=== PATIENT | female | born 1985 | race Native Hawaiian/Other Pacific Islander ===

== ENCOUNTER → 2016-12-01 | Emergency (ER) | payer OTHER ==
[~2016-12-01] VITALS: Ht 152.4 cm; Wt 59.9 kg
[~2016-12-01] MED LIST: ASPI81CH7 CHEW; IBUP-232 PO; IBUP800 PO; PRENCAP10 PO; VITA400D PO
--- NOTE | 2016-12-01 20:41 | PD ---
HPI Chief Complaint Contractions Date Seen: Dec 01, 2016 Travel History International Travel<30 Days: No Contact w/Intl Traveler<30Days: No Known Affected Area: No History of Present Illness HPI Patient is 31-year-old female G 3 P1 now at 39 weeks 4 days presents combining of contraction pain lasts several days getting worse tonight, no bleeding or ruptured membranes that she did pass what she describes as her mucous plug, heart rate tracing is reactive and contractions to be about every 5 or 6 minutes Para: 1 : 3 History Obstetric History Obstetric History 1 delivery 1 loss early Social History Alcohol Use: No Tobacco Use: No Substance Abuse: No Allergies-Medications (Allergen,Severity, Reaction): Coded Allergies: No Known Allergies (Unverified , 02/24/13) Home Meds Reported Medications Ibuprofen (Motrin 800 Mg Tab)800 Mg [id number] Mg PO Q8H PRN (PAIN) #30 TAB 01/12/14 Cholecalciferol (Vitamin D)400 Unit Anish Po Daily UNKNOWN DOSE 01/09/14 Vit W/ Ferrous Fumara ( Multi +Dha)+ Cap1 Cap PO 01/09/14 Review of Systems General / Constitutional: No: Fever, Weight Gain, Chills, Other Eyes: No: Diploplia, Blurred Vision, Visual changes, Pain, Photophobia HENT: No: Headaches, Vertigo, Lightheadedness Cardiovascular: No: Irregular Rhythm, Chest Pain or Discomfort, Palpitations, Tachycardia, Syncope, Varicosities, Edema, Cyanosis Respiratory: No: Cough, Short of Breath, Other Gastrointestinal: No: Nausea, Vomiting, Diarrhea Genitourinary: No: Decreased Urinary Output, Oliguria Musculoskeletal: No: Limited ROM, Weakness, Cramping, Edema, Pain Skin: No Rash, No Itching, No Dryness, No Lumps, No Change in Pigmentation, No Change in Nails, No Alopecia, No Lesions Neurologic: No: Weakness, Dizziness, Syncope, Focal Abnormalities, Coordination Problem, Headache, Slurred Speech, Seizures Psychiatric: No: Depression, Suicidal Ideations, Homicidal Ideation Endocrine: No: Heat Intolerance, Cold Intolerance, Polydipsia, Polyuria, Other Physical Exam Narrative GENERAL: Well-nourished, well-developed patient. SKIN: Warm and dry. HEAD: Normocephalic and atraumatic. EYES: No scleral icterus. No injection or drainage. ENT: No nasal drainage noted. Mucous membranes pink. Airway patent. NECK: Supple, trachea midline. No JVD. CARDIOVASCULAR: Regular rate and rhythm without murmurs, gallops, or rubs. RESPIRATORY: Breath sounds equal bilaterally. No accessory muscle use. BREASTS: Bilateral exam showed no masses , no retractions, no nipple discharge. ABDOMEN/GI: Abdomen soft, non-tender, bowel sounds present, no rebound, no guarding Gravid to [39-] weeks size Fundal Height: [-38] GENITOURINARY: External Genitalia: intact and normal in appearance BUS glands: [-] Cervix: [-1] Dilatation: [1-] Effacement: [-thick] Station: [-3] Presentation: [-vtx] Membranes: [intact ] Uterine Contractions: [q 5 min-] FHT's: Category: [1-] Baseline: [133-] Reactive: [-yes] Variability: [mod-] Decels: [-none] EXTREMITIES: No cyanosis or edema. BACK: Nontender without obvious deformity. No CVA tenderness. NEUROLOGICAL: Awake and alert. Motor and sensory grossly within normal limits. Five out of 5 muscle strength in all muscle groups. Normal speech. MDM Interpretation(s) Patient is 31-year-old female [address] Pinto now presenting complaining of contractions but no leakage or bleeding. heart rate tracing is reactive and she is ole care 5 or 6 minutes., Her cervix is fingertip thick and high very posterior, and baby is cephalic by ultrasound Plan Plan to discharge home for her to return if contractions worsen in intensity or she has bleeding or leakage of fluid Diagnosis Diagnosis: Primary Impression: False labor after 37 completed weeks of gestation Disposition: 01 DISCHARGE HOME Condition: Stable Calvin Thao II, MD Dec 01, 2016 20:41
== END | disposition home or self-care (01) ==
LOC: HOBED 19:59
DX: O47.1 False labor at or after 37 completed weeks of gestation (principal); Z3A.39 39 weeks gestation of pregnancy
CPT/HCPCS: 76815

== ENCOUNTER 2016-12-05 07:59 | Inpatient (IN) | payer OTHER ==
[2016-12-05] VITALS (40 sets, daily range): BP systolic 93–146; BP diastolic 45–112; PULSE 72–129; RESP 16–20; TEMP 97.4–98.2
[~2016-12-05 07:59] MED LIST changes: -IBUP-232 PO; -IBUP800 PO
[2016-12-05] MEDS ORDERED: LACTATED RINGER'S 1000 ML INJ 1,000 ML IV PRN (08:35)
--- NOTE | 2016-12-05 08:35 | PD ---
HPI Chief Complaint Ruptured membranes and contractions Date Seen: Dec 05, 2016 Time Seen: 08:30 Travel History International Travel<30 Days: No Contact w/Intl Traveler<30Days: No Known Affected Area: No History of Present Illness HPI 31-year-old female who is at 40 weeks and 1 day complains of rupture of membranes approximately 4:00 this morning with a gush of clear fluid. Patient began having painful contractions and what she describes as a bloody show. On palpating her course with a previous vaginal delivery Para: 1 : 2 History Past Medical History Medical History: Denies Significant Hx Obstetric History Obstetric History Spontaneous vaginal delivery 5 lbs. 13 oz. Past Surgical History Narrative Surgical Laparoscopy and a D&C Family History Family History: Negative Social History Alcohol Use: No Tobacco Use: No Substance Abuse: No Allergies-Medications (Allergen,Severity, Reaction): Coded Allergies: No Known Allergies (Unverified , 12/01/16) Home Meds Reported Medications Aspirin (Aspirin Children's)81 Mg Chew81 Mg CHEW DAILY Ref 0 12/01/16 Cholecalciferol (Vitamin D)400 Unit Anish Po Daily UNKNOWN DOSE 01/09/14 Vit W/ Ferrous Fumara ( Multi +Dha)+ Cap1 Cap PO 01/09/14 Discontinued Reported Medications Ibuprofen (Motrin 800 Mg Tab)800 Mg [id number] Mg PO Q8H PRN (PAIN) #30 TAB 01/12/14 Review of Systems Except as stated in HPI: all other systems reviewed are Neg Physical Exam Narrative GENERAL: Well-nourished, well-developed patient. SKIN: Warm and dry. HEAD: Normocephalic and atraumatic. EYES: No scleral icterus. No injection or drainage. ENT: No nasal drainage noted. Mucous membranes pink. Airway patent. NECK: Supple, trachea midline. No JVD. CARDIOVASCULAR: Regular rate and rhythm without murmurs, gallops, or rubs. RESPIRATORY: Breath sounds equal bilaterally. No accessory muscle use. BREASTS: Bilateral exam showed no masses , no retractions, no nipple discharge. ABDOMEN/GI: Abdomen soft, non-tender, bowel sounds present, no rebound, no guarding Gravid to [-] weeks size Fundal Height: [37-] GENITOURINARY: External Genitalia: intact and normal in appearance BUS glands: [-Normal] Cervix: [Posterior-] Dilatation: [-3] Effacement: [50-] Station: [--2] Presentation: [Vertex-] Membranes: [intact or ruptured] patient with gross lesions or ruptured membranes clear fluid noted. fore bag is palpated Uterine Contractions: [-] Every 5 minutes FHT's: Category: [1-] Baseline: [140-] Reactive: [-Moderate] Variability: [Moderate-] Decels: [Absent-] EXTREMITIES: No cyanosis or edema. BACK: Nontender without obvious deformity. No CVA tenderness. NEUROLOGICAL: Awake and alert. Motor and sensory grossly within normal limits. Five out of 5 muscle strength in all muscle groups. Normal speech. Data Data Vital Signs Reviewed: Yes MDM Plan Term gestation with spontaneous rupture membranes patient is in early labor. GBS is negative. Dr. Cullen is on for her group and was contacted Diagnosis Diagnosis: Primary Impression: Rupture of membranes with clear amniotic fluid Additional Impressions: 40 weeks gestation of Irregular uterine contractions Penny Hastings MD Dec 05, 2016 08:35
[2016-12-05] MEDS ORDERED: ONDANSETRON HCL 4 MG/2 ML VIAL IV PRN (08:45)
[2016-12-05] MEDS ORDERED: OXYTOCIN 30 UNITS-500ML PREMIX 500 ML IV ONE ×2 (08:45→17:45)
[2016-12-05] MEDS ORDERED: SODIUM CHLORID 0.9% 500 ML INJ 500 ML IV PRN (08:45)
[2016-12-05] MEDS ORDERED: CITRIC ACID-SODIUM CITRATE LIQ 30 ML UDC PO SCH (08:45)
[2016-12-05] MEDS ORDERED: MINERAL OIL 10 ML VIAL TOPICAL PRN (08:45)
[2016-12-05] MEDS ORDERED: LIDOCAINE HCL 1% 50 ML VIAL I-DERMAL PRN (08:45)
[2016-12-05] MEDS ORDERED: LIDOCAINE HCL 1% 50 ML VIAL INFIL PRN (08:45)
[2016-12-05] MEDS ORDERED: SODIUM CHLOR 0.9% 1000 ML INJ 1,000 ML IV PRN (08:55)
[2016-12-05] MEDS ORDERED: OXYTOCIN 30 UNITS-500ML PREMIX 500 ML IV SCH (09:00)
[2016-12-05 09:29] LABS: AUTOMATED NEUTROPHIL # 7.1 TH/MM3 (1.8-7.7); BASOPHIL % 0.4 % (0.0-2.0); EOSINOPHIL % 0.3 % (0.0-4.0); HEMATOCRIT 34.8 % (35.0-46.0); HEMO FLAGS DIFF FINAL; LYMPH % 22.6 % (9.0-44.0); LYMPHOCYTE # 2.3 TH/MM3 (1.0-4.8); MEAN CELL VOLUME 77.2 FL (80.0-100.0); MEAN CORPUSCULAR HEMOGLOBIN 26.3 PG (27.0-34.0); MONO % 6.5 % (0.0-8.0); NEUT % 70.2 % (16.0-70.0); PLATELET COUNT 324 TH/MM3 (150-450); RED BLOOD COUNT 4.51 MIL/MM3 (4.00-5.30); RED CELL DISTRIBUTION WIDTH 15.6 % (11.6-17.2); WHITE BLOOD COUNT 10.1 TH/MM3 (4.0-11.0)
[2016-12-05 09:41] LABS: BLOOD, URINE MOD (NEG); COMMENT (UR) CULT NOT INDICATED; CULTURE IF INDICATED CULT NOT INDICATED; GLUCOSE,URINE NEG (NEG); KETONE, URINE NEG (NEG); MUCUS URINE FEW /lpf (OCC); NITRITE,URINE NEG (NEG); SQUAMOUS EPITHELIAL CELL URINE 4 /hpf (0-5); URINE COLOR YELLOW (YELLW/STRAW)
[2016-12-05] MEDS ORDERED: fentaNYL 2MCG-BUPIV 0.125% INJ 100 ML ONE (10:00)
[2016-12-05] MEDS: LACTATED RINGER'S 1000 ML INJ 1,000 ML IV SCH ×2 (11:05→13:21)
[2016-12-05] MEDS ORDERED: MEASLES, MUMPS, RUBELLA VACCINE 0.5 ML VIAL SQ ONE (16:00)
[2016-12-05] MEDS ORDERED: DIPHTH/TETANUS/ACEL PERTUSSIS (BOOSTER) 0.5 ML VIAL/PFS IM ONE (16:00)
--- NOTE | 2016-12-05 17:32 | PD.OB.DELI ---
Anesthesia: Epidural Episiotomy: Midline Vaginal Delivery: Vacuum (pull x2) Presentation: Occiput anterior Nuchal Cord: x1 Infant: Male One Minute : 8 Five Minute : 9 Weight: 7-3 Infant Care: Suctioned Placenta: Spontaneous delivery Laceration: Episiotomy Repair: Chromic interrupted, Vicryl running Elsy Cullen MD Dec 05, 2016 17:32
[2016-12-05] MEDS ORDERED: ACETAMINOPHEN 325 MG TAB PO PRN (17:45)
[2016-12-05] MEDS ORDERED: ZOLPIDEM TARTRATE 5 MG TAB PO PRN (17:45)
[2016-12-05] MEDS ORDERED: ONDANSETRON ODT 4 MG TAB PO PRN (17:45)
[2016-12-05] MEDS ORDERED: SODIUM CHLORIDE 0.9% FLUSH 5 ML FLUSH IV PRN (17:45)
[2016-12-05] MEDS ORDERED: ALUMINUM/MAGNESIUM/SIMETH 30 ML CUP PO PRN (17:45)
[2016-12-05] MEDS: BENZOCAINE 20% TOPICAL SPRAY 60 ML CAN TOPICAL PRN (19:43)
[2016-12-05] MEDS: IBUPROFEN 600 MG TAB PO PRN (19:43)
[2016-12-05] MEDS: WITCH HAZEL 50%/GLYCERIN 12.5% 40 PAD JAR TOPICAL PRN (19:43)
[2016-12-05] MEDS ORDERED: SODIUM CHLORIDE 0.9% FLUSH 5 ML FLUSH IV SCH (21:00)
[2016-12-05] MEDS ORDERED: ACETAMINOPHEN/HYDROcodone 325 MG/5 MG TAB PO PRN (21:00)
[2016-12-06] MEDS: IBUPROFEN 600 MG TAB PO PRN ×3 (04:49→23:28)
--- NOTE | 2016-12-06 07:40 | HHI.OB ---
Subjective Post Day: 1 Remarks doing well, perineal pain Objective Vitals/I&O Vital Signs Date Time Temp Pulse Resp B/P Pulse Ox O2 Delivery O2 Flow Rate FiO2 12/05/16 23:00 98/66 12/05/16 21:32 98.2 111 18 98/66 12/05/16 19:30 18 12/05/16 19:15 98 111/78 12/05/16 18:30 82 96/68 12/05/16 18:16 94 99/62 12/05/16 18:00 94 112/66 12/05/16 17:45 103 109/62 12/05/16 17:30 77 115/59 12/05/16 17:16 93 111/73 12/05/16 17:01 98 146/98 12/05/16 16:47 84 116/75 12/05/16 16:45 131/112 12/05/16 16:31 129 110/93 12/05/16 16:15 89 120/78 12/05/16 16:04 80 93/48 12/05/16 15:46 114 108/79 12/05/16 15:45 97.4 12/05/16 15:45 20 12/05/16 15:30 80 113/69 12/05/16 15:00 83 116/73 12/05/16 14:45 80 114/73 12/05/16 14:30 82 116/70 12/05/16 14:22 72 97/54 12/05/16 14:15 79 94/45 12/05/16 14:00 75 97/53 12/05/16 13:45 85 102/73 12/05/16 13:30 77 105/71 12/05/16 13:18 98.2 18 12/05/16 13:15 78 111/68 12/05/16 13:00 84 108/75 12/05/16 12:45 81 115/75 12/05/16 12:30 97 109/74 12/05/16 12:15 93 103/75 12/05/16 12:00 84 112/75 12/05/16 11:45 92 108/75 12/05/16 11:30 98 112/76 12/05/16 11:30 16 12/05/16 11:18 96 115/68 12/05/16 09:30 98.1 12/05/16 09:00 18 12/05/16 08:56 84 118/74 Objective Remarks GENERAL: Well-nourished, well-developed patient. CARDIOVASCULAR: Regular rate and rhythm without murmurs, gallops, or rubs. RESPIRATORY: Breath sounds equal bilaterally. No accessory muscle use. ABDOMEN/GI: Abdomen soft, non-tender. Fundus: Firm, non-tender at umbilicus. GENITOURINARY: Light to moderate bleeding. EXTREMITIES: No cyanosis or edema, non-tender, without signs of DVT. Medications and IVs Current Medications Medications (Trade) Dose Ordered Sig/Dolores Route Start Time Stop Time Status Last Admin (NS Flush) 2 ml BID IV 12/05/16 21:00 (NS Flush) 2 ml UNSCH PRN IV 12/05/16 17:45 (Tylenol) 650 mg Q4H PRN PO 12/05/16 17:45 (Motrin) 600 mg Q6H PRN PO 12/05/16 17:45 12/06/16 04:49 (Americaine 20% Top Spr) 1 spray Q4H PRN TOPICAL 12/05/16 17:45 12/05/16 19:43 (Tucks Pads) 1 applic QID PRN TOPICAL 12/05/16 17:45 12/05/16 19:43 (Chel-Colace) 2 tab Q12H PRN PO 12/05/16 17:45 (Ambien) 5 mg HS PRN PO 12/05/16 17:45 (Mag-Al Plus Susp Liq) 15 ml Q8H PRN PO 12/05/16 17:45 (Zofran Odt) 4 mg Q6H PRN PO 12/05/16 17:45 ([place]sworth 5-325 Mg) 1 tab Q6H PRN PO 12/05/16 21:00 Assessment/Plan Problem List: (1) (spontaneous vaginal delivery) Assessment and Plan PPD 1 vavd cont routine care dispo- ppd 2 Christa Rock MD Dec 06, 2016 07:40
[2016-12-06] MEDS ORDERED: IBUP-232 PO (07:44)
--- NOTE | 2016-12-06 07:45 | HHI.DCPOC ---
Discharge Care Plan Diagnosis: (1) (spontaneous vaginal delivery) Your Health Problems Are: Vaginal delivery Report Symptoms to Your Doctor -Temperate above 100.5 degrees -Redness, of incision or excessive or foul smelling drainage -Unusual pain or calf pain -Increased vaginal bleeding -Painful or difficulty urinating -Feelings of extreme sadness or anxiety after 2 weeks Goals to Promote Your Health * To prevent worsening of your condition and complications * To maintain your health at the optimal level Directions to Meet Your Goals Take your medications as prescribed Follow your dietary instruction Follow activity as directed Ensure plenty of rest for recovery Drink fluids for hydration Keep your appointments as scheduled Take your immunizations and boosters as scheduled If your symptoms worsen call your PCP, if no PCP go to Urgent Care Center or Emergency Room Smoking is Dangerous to Your Health. Avoid second hand smoke Call the 24-hour crisis hotline for domestic abuse at Christa Rock MD Dec 06, 2016 07:45
[2016-12-06] MEDS: DOCUSATE SODIUM 50 MG/SENNA 8.6 MG TAB PO PRN ×2 (09:21→21:21)
[2016-12-06 21:00] VITALS: BP 111/72; PULSE 98; RESP 16; TEMP 98
[2016-12-07] MEDS: WITCH HAZEL 50%/GLYCERIN 12.5% 40 PAD JAR TOPICAL PRN ×2 (07:33→10:35)
[2016-12-07 08:00] VITALS: BP 104/67; PULSE 79; RESP 18; TEMP 98.2
[2016-12-07] MEDS: IBUPROFEN 600 MG TAB PO PRN (08:13)
[2016-12-07] MEDS: BENZOCAINE 20% TOPICAL SPRAY 60 ML CAN TOPICAL PRN (10:35)
== END 2016-12-07 12:00 | disposition home or self-care (01) | DRG 775 ==
LOC: HOBED 07:59 → H2EA 08:54 → H1EA 20:04
PROVIDERS: ADMIT Obstetrics & Gynecology; ATTEND Obstetrics & Gynecology
PROC: 10D07Z6 Extraction of Products of Conception, Vacuum, Via Natural or Artificial Opening (ICD-10-PCS; principal; 2016-12-05)
PROC: 0W8NXZZ Division of Female Perineum, External Approach (ICD-10-PCS; 2016-12-05)
DX: O69.81X0 Labor and delivery complicated by cord around neck, without compression, not applicable or unspecified (principal); Z37.0 Single live birth; Z3A.40 40 weeks gestation of pregnancy
CPT/HCPCS: 81001; 84112; 85025; 99285; J2590; J3010; J7120